=== PATIENT | male | born 1960 | race Caucasian/White ===

== ENCOUNTER 2023-05-14 10:06 | Emergency (ER) | payer OTHER, MEDICARE ==
[~2023-05-14] VITALS: Ht 177.8 cm; Wt 102.3 kg
[2023-05-14 10:33] LABS: BASO # 0.1 K/mm3 (0.0-0.2); BASO % 0.5 % (0.0-2.0); EOS # 0.1 K/mm3 (0.0-0.7); EOS % 1.4 % (0.0-4.0); GRAN # 5.9 K/mm3 (1.4-6.5); GRAN % 62.3 % (42.2-75.2); HEMATOCRIT 46.1 % (42.0-52.0); HEMOGLOBIN 16.1 g/dl (13.5-18.0); LYMPH # 2.7 K/mm3 (1.2-3.4); LYMPH % 28.5 % (20.0-51.0); MEAN CELL VOLUME 92 fl (80.0-100.0); MEAN CORPUSCULAR HEMOGLOBIN 32 pg (27-31); MEAN CORPUSCULAR HGB CONC 35 g/dl (33.0-37.0); MEAN PLATELET VOLUME 10.8 fl (7.4-10.4); MONO # 0.6 K/mm3 (0.1-0.6); MONO % 6.7 % (1.7-9.3); PLATELET COUNT 191 K/mm3 (130-400); RED BLOOD COUNT 5.04 M/mm3 (4.20-5.60)
[2023-05-14 10:50] LABS: ALBUMIN 4.1 gm/dL (3.4-4.8); BILIRUBIN,TOTAL 0.8 mg/dL (0.2-1.2); CALCIUM 9.8 mg/dL (8.4-10.2); CREATININE, serum 1.14 mg/dL (0.72-1.25); POTASSIUM 3.3 mmol/L (3.5-4.5); TOTAL PROTEIN 7.3 gm/dL (6.2-8.1)
[2023-05-14 10:58] LABS: TROPONIN-I 0.01 ng/mL (0.00-0.033)
[2023-05-14] MEDS ORDERED: ANTIVERT 25MG25 MG PO (12:06)
[2023-05-14] MEDS ORDERED: ZOFRAN 4MG T4 MG/TAB PO (12:06)
[2023-05-14 12:31] VITALS: BP 143/95; PULSE 77; TEMP 98.1
== END 2023-05-14 12:31 | disposition home or self-care (01) ==
LOC: COL.ER 10:06
PROVIDERS: Personal Emergency Response Attendant
DX: R11.2 Nausea with vomiting, unspecified (principal); R42 Dizziness and giddiness; I48.91 Unspecified atrial fibrillation; Z79.01 Long term (current) use of anticoagulants
CPT/HCPCS: J2405; J7030

== ENCOUNTER 2023-09-11 20:41 | Emergency (ER) | payer MEDICARE, OTHER ==
[~2023-09-11] VITALS: Ht 172.7 cm; Wt 102.3 kg
[~2023-09-11 20:41] MED LIST: ANTIVERT 25MG25 MG PO; ZOFRAN 4MG T4 MG/TAB PO
[2023-09-11 20:46] VITALS: TEMP 98.9
[2023-09-11 22:10] VITALS: BP 132/81; PULSE 80
== END 2023-09-11 22:10 | disposition home or self-care (01) ==
LOC: COL.ER 20:41
DX: H53.9 Unspecified visual disturbance (principal)